=== PATIENT | male | born 1995 | race Caucasian/White ===

== ENCOUNTER 2017-11-01 14:50 | Emergency (ER) | payer MEDICAID, BC, SELFPAY, OTHER ==
[2017-11-01] MEDS: PERCOCET 5MG/325MG TAB PO (15:32)
== END 2017-11-01 17:43 | disposition home or self-care (01) ==
LOC: M ED 14:50
DX: S43.004A Unspecified dislocation of right shoulder joint, initial encounter (principal); X58.XXXA Exposure to other specified factors, initial encounter; Y92.89 Other specified places as the place of occurrence of the external cause
CPT/HCPCS: 73030

== ENCOUNTER 2018-03-26 14:48 | Emergency (ER) | payer OTHER, MEDICAID | END 2018-03-26 15:34 | disposition home or self-care (01) | LOC: M ED 14:48 | DX: M62.830 Muscle spasm of back (principal); M54.9 Dorsalgia, unspecified; G89.29 Other chronic pain | CPT/HCPCS: 99282 ==

== ENCOUNTER → 2019-02-14 | Outpatient (CLI) | payer OTHER ==
[~2019-02-14] MED LIST: CYCL10TA PO; HYDR-3715 PO; PRED10TA2 PO
--- NOTE | 2019-02-14 15:34 | REP ---
Clinical: Pain. Technique: Neutral and frog lateral views of the right hip. Findings: No acute fracture dislocation. No significant arthritic changes. Surrounding soft tissues are unremarkable. Impression: No acute fracture or dislocation. Electronically Signed by Ayad Kuhn MD 02/14/2019 03:26 P
--- NOTE | 2019-02-14 15:35 | REP ---
Clinical: Pain. Technique: AP, lateral, coned-down views of the lumbosacral spine. Findings: Alignment and lordosis maintained. Vertebral bodies and disc spaces are normal for age. No acute fracture / compression injury or subluxation. Impression: Normal three-view lumbosacral spine series Electronically Signed by Ayad Kuhn MD 02/14/2019 03:26 P
== END ==
LOC: M WUC 09:50
PROVIDERS: ATTEND Nurse Practitioner Family
DX: M54.5 Low back pain (principal); M25.551 Pain in right hip

== ENCOUNTER 2021-03-27 09:40 | Inpatient (IN) | payer BC, OTHER ==
[~2021-03-27] VITALS: Ht 182.9 cm; Wt 62.5 kg
[~2021-03-27 09:40] MED LIST changes: +CYCL-707 PO; -CYCL10TA PO
[2021-03-27] MEDS ORDERED: ACET-683 PO (09:50)
[2021-03-27 10:28] LABS: BASO % 0.2 % (0.0-1.0); EOS % 0.1 % (0.0-3.0); HEMATOCRIT 45.8 % (42.0-52.0); HEMOGLOBIN 15.8 g/dl (13.5-17.5); LYMPH # 1.1 10^3/uL (1.5-5.0); LYMPH % 6.1 % (24.0-44.0); MEAN CORPUSCULAR HGB CONC 34.5 g/dl (32.0-36.5); MEAN CORPUSCULAR VOLUME 86.9 fl (80.0-96.0); MONO # 0.9 10^3/uL (0.0-0.8); NEUTROPHILS # 15.9 10^3/uL (1.5-8.5); NEUTROPHILS % 88.2 % (36.0-66.0); PLATELET COUNT, AUTOMATED 156 10^3/uL (150-450); RED BLOOD COUNT 5.27 10^6/uL (4.30-6.10)
[2021-03-27] MEDS ORDERED: NS 1,000 ML IV ONE ×2 (10:50→12:05)
[2021-03-27] MEDS ORDERED: KETOROLAC 30 MG/ML 1ML VIAL IV ONE (10:50)
[2021-03-27] MEDS ORDERED: ONDANSETRON 4MG/2ML VIAL IV ONE (10:50)
[2021-03-27] MEDS ORDERED: ISOVUE-370 76% 100ML VIAL As Ordered ONE (10:55)
[2021-03-27 10:56] LABS: ALBUMIN 4.3 GM/DL (3.2-5.2); BILIRUBIN,DIRECT 0.4 MG/DL (0.0-0.2); BILIRUBIN,TOTAL 1.5 MG/DL (0.2-1.0); TOTAL PROTEIN 8.6 GM/DL (6.4-8.2)
[2021-03-27] MEDS: MORPHINE 4 MG/ML 1ML VIAL/SYRINGE (J2270) IV PRN ×2 (10:56→12:09)
[2021-03-27] MEDS ORDERED: PIPERACILLIN/TAZOBACTAM SOD 4.5 GM in D5W MINI-BAG PLUS 50 ML IV ONE (11:50)
[2021-03-27 12:35] LABS: RSV AMPLIFICATION NEGATIVE (NEGATIVE)
[2021-03-27] MEDS ORDERED: BUPIVACAINE HCL 0.25% 30ML VIAL As Ordered ONE (12:46)
[2021-03-27] MEDS ORDERED: LIDOCAINE 1% SDV 30ML VIAL As Ordered ONE (12:46)
[2021-03-27] MEDS ORDERED: MORPHINE 2 MG/ML 1ML VIAL (J2270) IV PRN (13:25)
[2021-03-27] MEDS ORDERED: KETOROLAC 30 MG/ML 1ML VIAL IV PRN ×2 (13:25→14:45)
[2021-03-27 13:38] LABS: CPK CREATINE PHOSPHOKINASE 101 U/L (39-308)
[2021-03-27 13:38] LABS: INR 1.05; PROTHROMBIN TIME 14.1 SECONDS (12.7-14.5)
[2021-03-27 13:39] LABS: PARTIAL THROMBOPLASTIN TIME 32.5 SECONDS (25.9-37.0)
[2021-03-27 13:41] LABS: D-DIMER QUANT 1433.87 ng/ml (<500)
[2021-03-27 13:44] LABS: C REACTIVE PROTEIN QUANTITATIV 6.37 MG/DL (0.00-0.30)
[2021-03-27 13:52] LABS: ERYTHROCYTE SEDIMENTATION RATE 9 mm/hr (0-15)
[2021-03-27] MEDS ORDERED: ROCURONIUM BROMIDE 50 MG/5 ML VIAL As Ordered ONE (13:55)
[2021-03-27] MEDS ORDERED: ONDANSETRON 4MG/2ML VIAL As Ordered ONE (13:55)
[2021-03-27] MEDS ORDERED: fentaNYL 250 MCG/5 ML INJECTION As Ordered ONE (13:55)
[2021-03-27] MEDS ORDERED: dexameTHASONE 4 MG/ML 1ML VIAL (J1100 PER 1MG) As Ordered ONE (13:55)
[2021-03-27] MEDS ORDERED: propofoL 200 MG/20 ML VIAL As Ordered ONE (13:55)
[2021-03-27] MEDS ORDERED: MIDAZOLAM INJ 2MG/2ML VIAL (J2250 PER 1MG) As Ordered ONE (13:55)
[2021-03-27] MEDS ORDERED: LIDOCAINE 2% 100MG/5ML SDV (FOR ANES.) As Ordered ONE (13:55)
[2021-03-27] MEDS ORDERED: SUGAMMADEX SODIUM 500 MG/5 ML VIAL (BRIDION) As Ordered ONE (13:55)
[2021-03-27] MEDS ORDERED: PHENYLephrine 500MCG 5ML (100MCG/ML) SYRINGE As Ordered ONE (13:57)
[2021-03-27] MEDS ORDERED: LR 1,000 ML IV ONE (14:00)
[2021-03-27] MEDS ORDERED: ONDANSETRON 4MG/2ML VIAL IV PRN (14:45)
[2021-03-27] MEDS ORDERED: PERCOCET 5MG/325MG TAB PO PRN ×2 (14:45)
[2021-03-27] MEDS ORDERED: ACETAMINOPHEN TAB 650MG DOSE (2X325MG) PO PRN (14:45)
[2021-03-27] MEDS ORDERED: D5W/0.45% SODIUM CHLORIDE 500 ML IV SCH (15:00)
[2021-03-27 15:35] VITALS: BP 107/55
[2021-03-27] MEDS: LR 1,000 ML IV SCH (16:00)
[2021-03-27] MEDS: PIPERACILLIN/TAZOBACTAM SOD 3.375 GM in D5W MINI-BAG PLUS 50 ML IV SCH (18:03)
[2021-03-27 20:00] VITALS: BP 106/58
[2021-03-27] MEDS ORDERED: PIPERACILLIN/TAZOBACTAM SOD 4.5 GM in D5W MINI-BAG PLUS 50 ML IV SCH (20:00)
[2021-03-28] VITALS: BP 100/57
[2021-03-28] MEDS: PIPERACILLIN/TAZOBACTAM SOD 3.375 GM in D5W MINI-BAG PLUS 50 ML IV SCH ×2 (00:17→06:14)
[2021-03-28] MEDS: LR 1,000 ML IV SCH (01:02)
[2021-03-28 04:00] VITALS: BP 105/66
[2021-03-28 07:42] LABS: BASO % 0.1 % (0.0-1.0); EOS % 0.1 % (0.0-3.0); LYMPH # 1.3 10^3/uL (1.5-5.0); LYMPH % 9.9 % (24.0-44.0); MEAN CORPUSCULAR HEMOGLOBIN 29.3 pg (27.0-33.0); MEAN CORPUSCULAR HGB CONC 33.2 g/dl (32.0-36.5); MEAN CORPUSCULAR VOLUME 88.1 fl (80.0-96.0); MONO # 0.9 10^3/uL (0.0-0.8); NEUTROPHILS # 11.1 10^3/uL (1.5-8.5); NEUTROPHILS % 82.4 % (36.0-66.0); PLATELET COUNT, AUTOMATED 123 10^3/uL (150-450); WHITE BLOOD COUNT 13.5 10^3/uL (4.0-10.0)
[2021-03-28 07:50] LABS: HEMOGLOBIN 12.3 g/dl (13.5-17.5)
[2021-03-28] MEDS ORDERED: AUGM875T28 PO (08:00)
[2021-03-28] MEDS ORDERED: PERCOCET PO (08:00)
[2021-03-28 08:21] LABS: ALT/SGPT 24 U/L (12-78); BILIRUBIN,TOTAL 0.9 MG/DL (0.2-1.0); BLOOD UREA NITROGEN 23 MG/DL (7-18); CALCIUM LEVEL 8.2 MG/DL (8.5-10.1); CARBON DIOXIDE LEVEL 23 MEQ/L (21-32); CHLORIDE LEVEL 109 MEQ/L (98-107); CREATININE FOR GFR 0.86 MG/DL (0.70-1.30); GLOMERULAR FILTRATION RATE > 60.0 (>60); GLUCOSE, FASTING 77 MG/DL (70-100); POTASSIUM SERUM 3.7 MEQ/L (3.5-5.1); SODIUM LEVEL 140 MEQ/L (136-145); TOTAL PROTEIN 6.5 GM/DL (6.4-8.2)
[2021-03-28] MEDS ORDERED: ENOXAPARIN 40MG/0.4ML SYRINGE (J1650 PER 10MG) SC SCH (09:00)
== END 2021-03-28 11:30 | disposition home health service (06) | DRG 225 ==
LOC: M ED 09:40 → M ED INP 13:14 → M 4MAIN 15:30
PROVIDERS: ADMIT Surgery; ATTEND General Practice
PROC: 0DTJ4ZZ Resection of Appendix, Percutaneous Endoscopic Approach (ICD-10-PCS; principal; 2021-03-27 12:14)
DX: K35.80 Unspecified acute appendicitis (principal); M54.50 Low back pain, unspecified; Z20.822 Contact with and (suspected) exposure to COVID-19

== ENCOUNTER 2021-08-04 13:01 | Emergency (ER) | payer OTHER ==
[~2021-08-04] VITALS: Ht 182.9 cm; Wt 61.4 kg
[~2021-08-04 13:01] MED LIST changes: +ACET-683 PO; +AUGM875T28 PO; +PERCOCET PO
[2021-08-04] MEDS ORDERED: methocarbamoL 500 MG TAB PO ONE (14:00)
[2021-08-04] MEDS ORDERED: KETOROLAC 30 MG/ML 1ML VIAL IM ONE (14:00)
[2021-08-04] MEDS ORDERED: LIDOCAINE 5% (LIDODERM) PATCH TD ONE (14:00)
[2021-08-04] MEDS ORDERED: LIDO5DIS41 TOP (14:05)
[2021-08-04] MEDS ORDERED: METH-1164 PO (14:06)
[2021-08-04] MEDS ORDERED: NS 1,000 ML IV ONE (14:25)
[2021-08-04 15:11] LABS: BASO % 0.9 % (0.0-1.0); EOS # 0.2 10^3/uL (0.0-0.5); EOS % 4.4 % (0.0-3.0); HEMATOCRIT 45.4 % (42.0-52.0); HEMOGLOBIN 14.9 g/dl (13.5-17.5); LYMPH # 1.8 10^3/uL (1.5-5.0); LYMPH % 39.7 % (24.0-44.0); MEAN CORPUSCULAR HGB CONC 32.8 g/dl (32.0-36.5); MEAN CORPUSCULAR VOLUME 88.3 fl (80.0-96.0); MONO # 0.9 10^3/uL (0.0-0.8); MONO % 18.6 % (2.0-8.0); NEUTROPHILS # 1.7 10^3/uL (1.5-8.5); NEUTROPHILS % 36.2 % (36.0-66.0); PLATELET COUNT, AUTOMATED 129 10^3/uL (150-450); RED BLOOD COUNT 5.14 10^6/uL (4.30-6.10); WHITE BLOOD COUNT 4.6 10^3/uL (4.0-10.0)
[2021-08-04 15:39] LABS: CK-MB VALUE MASS 2.2 NG/ML (<3.6); CPK CREATINE PHOSPHOKINASE 210 U/L (39-308); MB/CK RELATIVE INDEX 1.05 (< OR =4)
[2021-08-04] MEDS ORDERED: ISOVUE-370 76% 100ML VIAL As Ordered ONE (16:06)
[2021-08-04 17:50] VITALS: BP 105/57
[2021-08-04] MEDS ORDERED: **NOTE PATIENT COMMENT** MISC XX SCH (21:00)
== END 2021-08-04 18:11 | disposition home or self-care (01) ==
LOC: M ED 13:01
DX: M54.32 Sciatica, left side (principal); R94.31 Abnormal electrocardiogram [ECG] [EKG]
CPT/HCPCS: 71046; 71275; 72128; 72131; 74174; 80047; 82550; 82553; 83690; 85025; 93005; 93041; 94760; 96360; 96361; 96372; 99285; J1885; Q9967

== ENCOUNTER 2023-01-18 08:33 | Emergency (ER) | payer OTHER ==
[~2023-01-18] VITALS: Ht 182.9 cm; Wt 65.5 kg
[~2023-01-18 08:33] MED LIST changes: +LIDO5DIS41 TOP; +METH-1164 PO
[2023-01-18] MEDS ORDERED: LIDOCAINE 5% (LIDODERM) PATCH TD ONE (10:15)
[2023-01-18] MEDS ORDERED: KETOROLAC 60MG 2ML VIAL IM ONE (10:15)
[2023-01-18] MEDS ORDERED: diazePAM 10 MG TAB PO ONE (10:15)
[2023-01-18] MEDS ORDERED: ASPE4PAD TOP (11:53)
[2023-01-18] MEDS ORDERED: NAPR-837 PO (11:53)
[2023-01-18] MEDS ORDERED: METH-1165 PO (11:53)
[2023-01-18 12:03] VITALS: BP 124/72; TEMP 97.9; O2SAT 98
== END 2023-01-18 12:04 | disposition home or self-care (01) ==
LOC: M ED 10:58
DX: M54.59 Other low back pain (principal); F17.210 Nicotine dependence, cigarettes, uncomplicated
CPT/HCPCS: 72131; 96372; 99283; J1885

== ENCOUNTER 2023-06-30 10:52 | Emergency (ER) | payer OTHER, SELFPAY ==
[~2023-06-30] VITALS: Ht 182.9 cm; Wt 66.5 kg
[~2023-06-30 10:52] MED LIST changes: +ASPE4PAD TOP; +METH-1165 PO; +NAPR-837 PO
[2023-06-30] MEDS ORDERED: IBUP-1022 PO (12:13)
[2023-06-30] MEDS: KETOROLAC 30 MG/ML 1ML VIAL IM ONE (12:18)
[2023-06-30 12:20] VITALS: BP 116/62; TEMP 99.4; O2SAT 96
== END 2023-06-30 12:25 | disposition home or self-care (01) ==
LOC: M ED 10:52
DX: S59.902A Unspecified injury of left elbow, initial encounter (principal); M70.22 Olecranon bursitis, left elbow; V18.0XXA Pedal cycle driver injured in noncollision transport accident in nontraffic accident, initial encounter; Y92.410 Unspecified street and highway as the place of occurrence of the external cause; Y93.55 Activity, bike riding; Y99.9 Unspecified external cause status; Z79.1 Long term (current) use of non-steroidal anti-inflammatories (NSAID)
CPT/HCPCS: 73060; 73080; 73090; 96372; 99284; J1885

== ENCOUNTER 2023-11-06 17:15 | Emergency (ER) | payer OTHER, SELFPAY ==
[~2023-11-06] VITALS: Ht 188 cm; Wt 68.8 kg
[~2023-11-06 17:15] MED LIST changes: +IBUP-1022 PO
[2023-11-06] MEDS ORDERED: IBUP-1022 PO (20:59)
[2023-11-06] MEDS ORDERED: CEPH500C PO (20:59)
[2023-11-06] MEDS: CEPHALEXIN 500 MG CAP PO ONE (21:07)
[2023-11-06] MEDS: IBUPROFEN 600MG TAB PO ONE (21:07)
[2023-11-06 21:09] VITALS: BP 113/64; TEMP 98.3; O2SAT 100
== END 2023-11-06 21:17 | disposition home or self-care (01) ==
LOC: M ED 17:15
DX: S90.31XA Contusion of right foot, initial encounter (principal); W23.2XXA Caught, crushed, jammed or pinched between a moving and stationary object, initial encounter; Y92.410 Unspecified street and highway as the place of occurrence of the external cause; Y93.9 Activity, unspecified; Y99.9 Unspecified external cause status

== ENCOUNTER 2024-01-05 16:38 | Emergency (ER) | payer OTHER ==
[~2024-01-05] VITALS: Ht 190.5 cm; Wt 69.3 kg
[~2024-01-05 16:38] MED LIST changes: -OXYC7.5T3 PO
[2024-01-05 19:50] VITALS: BP 129/72; TEMP 97.7; O2SAT 95
[2024-01-05] MEDS: PERCOCET 5MG/325MG TAB PO ONE (19:57)
[2024-01-05] MEDS ORDERED: OXYC7.5T3 PO (20:46)
== END 2024-01-05 21:01 | disposition home or self-care (01) ==
LOC: M ED 16:38
DX: S62.011A Displaced fracture of distal pole of navicular [scaphoid] bone of right wrist, initial encounter for closed fracture (principal); V28.01XA Electric (assisted) bicycle driver injured in noncollision transport accident in nontraffic accident, initial encounter; Y92.410 Unspecified street and highway as the place of occurrence of the external cause; Y93.89 Activity, other specified; Y99.9 Unspecified external cause status

== ENCOUNTER → 2024-01-05 | Outpatient (CLI) | payer OTHER ==
[~2024-01-05] MED LIST changes: +CEPH500C PO; +OXYC7.5T3 PO
== END ==
LOC: M RAD 16:14
PROVIDERS: ATTEND Physician Assistant Medical
DX: S62.021A Displaced fracture of middle third of navicular [scaphoid] bone of right wrist, initial encounter for closed fracture (principal); W19.XXXA Unspecified fall, initial encounter; Y93.9 Activity, unspecified; Y92.9 Unspecified place or not applicable

== ENCOUNTER → 2024-01-24 | Outpatient (CLI) | payer OTHER ==
[~2024-01-24] MED LIST changes: +OXYC7.5T3 PO
== END ==
LOC: M SOG 10:45
PROVIDERS: ATTEND Physician Assistant
DX: S62.001A Unspecified fracture of navicular [scaphoid] bone of right wrist, initial encounter for closed fracture (principal)

== ENCOUNTER → 2024-02-21 | Outpatient (CLI) | payer OTHER | LOC: M SOG 07:52 | PROVIDERS: ATTEND Physician Assistant | DX: S62.001D Unspecified fracture of navicular [scaphoid] bone of right wrist, subsequent encounter for fracture with routine healing (principal) ==

== ENCOUNTER → 2024-03-05 | Outpatient (CLI) | payer OTHER | LOC: M SOG 09:51 | PROVIDERS: ATTEND Physician Assistant | DX: M25.631 Stiffness of right wrist, not elsewhere classified (principal); S62.001D Unspecified fracture of navicular [scaphoid] bone of right wrist, subsequent encounter for fracture with routine healing ==

== ENCOUNTER → 2024-03-22 | Outpatient (CLI) | payer MEDICAID, OTHER | LOC: M RAD 15:17 | PROVIDERS: ATTEND Physician Assistant | DX: S62.001D Unspecified fracture of navicular [scaphoid] bone of right wrist, subsequent encounter for fracture with routine healing (principal); M85.431 Solitary bone cyst, right ulna and radius ==

== ENCOUNTER → 2024-04-05 | Outpatient (CLI) | payer OTHER | LOC: M SOG 07:53 | PROVIDERS: ATTEND Physician Assistant | DX: M25.631 Stiffness of right wrist, not elsewhere classified (principal); S62.001D Unspecified fracture of navicular [scaphoid] bone of right wrist, subsequent encounter for fracture with routine healing ==

== ENCOUNTER 2024-07-28 08:26 | Emergency (ER) | payer OTHER, MEDICAID ==
[~2024-07-28] VITALS: Ht 182.9 cm; Wt 68.4 kg
[2024-07-28] MEDS: predniSONE 20 MG TAB PO ONE (09:36)
[2024-07-28] MEDS: IPRATROPIUM 0.5MG/ALBUTEROL 2.5MG INH SOL UD 3ML NEB SCH (09:38)
[2024-07-28] MEDS ORDERED: VENTAER INH (11:07)
[2024-07-28] MEDS ORDERED: PRED20TA PO (11:07)
[2024-07-28 11:11] VITALS: BP 103/56; TEMP 98.5; O2SAT 95
== END 2024-07-28 11:19 | disposition home or self-care (01) ==
LOC: M ED 08:26
DX: J20.9 Acute bronchitis, unspecified (principal); B34.8 Other viral infections of unspecified site; J43.9 Emphysema, unspecified; F12.10 Cannabis abuse, uncomplicated; Z79.52 Long term (current) use of systemic steroids; Z79.899 Other long term (current) drug therapy
CPT/HCPCS: 71046; 87486; 87581; 87633; 87798; 94640; 94760; 99284; J7512

== ENCOUNTER 2024-08-16 08:41 | Emergency (ER) | payer OTHER ==
[~2024-08-16] VITALS: Ht 185.4 cm; Wt 67.1 kg
[~2024-08-16 08:41] MED LIST changes: +PRED20TA PO; +VENTAER INH
[2024-08-16] MEDS: ALBUTEROL SULFATE 2.5MG/0.5ML INH CONCENTRATE NEB SOLN NEB ONE (11:36)
[2024-08-16 11:46] LABS: BASO # 0.1 10^3/uL (0.0-0.2); BASO % 0.9 % (0.0-1.0); EOS # 0.4 10^3/uL (0.0-0.5); HEMATOCRIT 48.2 % (42.0-52.0); HEMOGLOBIN 16.5 g/dl (13.5-17.5); LYMPH # 1.5 10^3/uL (1.5-5.0); LYMPH % 14.7 % (24.0-44.0); MEAN CORPUSCULAR HEMOGLOBIN 29.6 pg (27.0-33.0); MEAN CORPUSCULAR HGB CONC 34.2 g/dl (32.0-36.5); MEAN CORPUSCULAR VOLUME 86.4 fl (80.0-96.0); MONO # 1.3 10^3/uL (0.0-0.8); NEUTROPHILS # 6.7 10^3/uL (1.5-8.5); NEUTROPHILS % 67.2 % (36.0-66.0); PLATELET COUNT, AUTOMATED 177 10^3/uL (150-450); RED BLOOD COUNT 5.58 10^6/uL (4.30-6.10); WHITE BLOOD COUNT 9.9 10^3/uL (4.0-10.0)
[2024-08-16 12:27] LABS: BLOOD UREA NITROGEN 22 MG/DL (9-23); CALCIUM LEVEL 9.5 MG/DL (8.5-10.1); CARBON DIOXIDE LEVEL 23 MMOL/L (20-31); CHLORIDE LEVEL 107 MMOL/L (98-107); GLOMERULAR FILTRATION RATE > 90.0 (>60); GLUCOSE, FASTING 80 MG/DL (60-100); POTASSIUM SERUM 4.1 MMOL/L (3.5-5.1); SODIUM LEVEL 142 MMOL/L (136-145)
[2024-08-16] MEDS ORDERED: ISOVUE-370 76% 100ML VIAL As Ordered ONE (12:28)
[2024-08-16 12:29] LABS: THYROID STIMULATING HORMONE 0.458 uIU/ML (0.55-4.78)
[2024-08-16] MEDS ORDERED: FLON1SPR NARES (13:40)
[2024-08-16] MEDS ORDERED: LEVOTAB10 PO (13:40)
[2024-08-16 13:46] VITALS: BP 94/55; TEMP 97.6; O2SAT 100
== END 2024-08-16 13:48 | disposition home or self-care (01) ==
LOC: M ED 08:41
DX: R06.02 Shortness of breath (principal); Z90.89 Acquired absence of other organs; Z79.52 Long term (current) use of systemic steroids; Z79.899 Other long term (current) drug therapy
CPT/HCPCS: 36415; 71275; 80048; 84443; 85025; 94640; 94760; 99284; Q9967

== ENCOUNTER → 2024-10-31 | Outpatient (CLI) | payer OTHER ==
[~2024-10-31] MED LIST changes: +FLON1SPR NARES; +LEVOTAB10 PO; +LIDO1ADH93 TOP; -LIDO5DIS41 TOP; +METHACHOLINE KIT (6 VIAL.NEB PREMIX) INH ONE
== END ==
LOC: M CARPUL 12:30
PROVIDERS: ATTEND Internal Medicine Pulmonary Disease
DX: R06.02 Shortness of breath (principal)
CPT/HCPCS: 88738; 94010; 94070; 94726; 94729; 95070; J7674